=== PATIENT | female | born 1965 | race Caucasian/White ===

== ENCOUNTER → 2016-10-16 | Day surgery (SDC) | payer OTHER ==
--- NOTE | 2016-10-17 15:57 | PATH ---
Surgical Pathology Report Patient Name: ELLIS ROSARIO [facility]. Rec. #: [id number] /Age/Gender: 1965 (Age: 51) / F Account: [id number] Location: [facility] Taken: 10/16/2016 Received: 10/16/2016 Reported: 10/17/2016 Physicians: Zachary Juarez M.D. Specimen(s) Received A: LEFT BREAST SPECIMEN WITH CALCIFICATIONS B: LEFT BREAST SPECIMEN WITHOUT CALCIFICATIONS Clinical History Nonpalpable lesion Mammographic findings: microcalcification, suspicious Final Diagnosis A. BREAST, LEFT, WITH CALCIFICATIONS, STEREOTACTIC BIOPSY: BENIGN BREAST TISSUE SHOWING FIBROADENOMATOID CHANGE AND STROMAL FIBROSIS. CALCIFICATIONS ARE PRESENT IN ASSOCIATION WITH BENIGN GLANDULAR PARENCHYMA. B. BREAST, LEFT, WITHOUT CALCIFICATIONS, STEREOTACTIC BIOPSY: BENIGN BREAST TISSUE SHOWING FEW CALCIFICATIONS IN ASSOCIATION WITH BENIGN GLANDULAR PARENCHYMA. Electronically Signed Venita Trammell M.D. Gross Description A. Received in formalin, labeled "left breast with calcifications," are 5 waller-yellow, cylindrical portions of fibroadipose tissue ranging from 0.5-1.8 cm. in length and averaging 0.3 cm. in diameter. The specimen is submitted in toto in one cassette. B. Received in formalin labeled "left breast without calcifications," is a 1.7 x 1.4 x 0.3 cm aggregate of multiple waller-yellow, irregular to cylindrical portions of fibroadipose tissue. The formalin is filtered and the specimen is entirely submitted in one cassette. Time to formalin fixation: 5 minutes Total formalin fixation time: Approximately 6 hours. 10/16/2016 [facility]10/16/2016
== END | disposition home or self-care (01) ==
LOC: FMAMMOTONE 11:28
PROVIDERS: ATTEND Surgery Surgical Oncology
PROC: 0HBU3ZX Excision of Left Breast, Percutaneous Approach, Diagnostic (ICD-10-PCS; principal; 2016-10-16)
DX: N60.32 Fibrosclerosis of left breast (principal); R92.1 Mammographic calcification found on diagnostic imaging of breast; N64.89 Other specified disorders of breast; N60.82 Other benign mammary dysplasias of left breast
CPT/HCPCS: 19081; 87899; 88305-TC; A4648